=== PATIENT | male | born 1955 | race American Indian/Alaskan Native ===

== ENCOUNTER 2018-10-20 15:39 | Emergency (ER) | payer MEDICARE ==
[2018-10-20] MEDS ORDERED: TYLENOL PO ONE (16:31)
[2018-10-20 17:03] LABS: Albumin 3.1 g/dL (3.9-5); Calcium 7.9 mg/dL (8.4-10.2)
[2018-10-20 17:12] LABS: Hematocrit 48.9 % (35.5-45.6); Hemoglobin 15.9 gm/dl (11.8-15.2); Mean Corpuscular HGB Conc 33 % (32-34); Mean Corpuscular Volume 91 fl (84-94); Red Blood Count 5.38 M/mm3 (3.65-5.03); Red Cell Distribution Width 17.1 % (13.2-15.2)
[2018-10-20 17:48] LABS: Platelet Count 69 K/mm3 (140-440)
[2018-10-20] MEDS ORDERED: NACL 0.9% 1000 ML 1,000 ML IV ONE (17:48)
--- NOTE | 2018-10-20 17:52 | Emergency Department Report ---
ED Male HPI - General Chief complaint: Urogenital-Male Stated complaint: DIALYSIS PATIENT/PENNIS BLOOD Time Seen by Provider: 10/20/18 17:47 Source: patient Mode of arrival: Ambulatory Limitations: Physical Limitation - History of Present Illness Initial comments: Patient is 63-year-old male that presents emergency room with complaints of suprapubic abdominal pain and blood coming from the penis. Patient states it's a constant dripping of blood from his penis. Patient states she is having a burning sensation in the suprapubic region and then has a few drops of blood. Patient states that the leading is not continuous but is intermittent patient states the pain is a 6 out of 10 and is worsening. Patient also complains of fever. Patient denies chills and body aches. Patient states that the pain is better with rest and worse with palpation and movement. Patient states it is not crit urine for the last 5 years area patient states that on dialysis for many years. MD Complaint: other (patient complains of blood from the penis.) Location: abdomen Radiation: none Severity: moderate Severity scale (0 -10): 5 Quality: burning Consistency: intermittent Improves with: rest Worsens with: palpation, movement fever. denies: discharge, swelling, mass, rash, urinary retention, blood in urine, dysuria, nausea/vomiting, incontinence - Related Data Sexually active: No Home Medications Medication Instructions Recorded Confirmed Last Taken Aspirin [Aspirin BABY CHEW TAB] 81 mg PO QDAY 07/05/13 10/20/18 11/25/15 Insulin Glargine,Hum.rec.anlog 8 units SUB-Q QHS PRN 11/19/13 10/20/18 11/25/15 [Lantus Solostar] Carvedilol [Coreg] 12.5 mg PO BID 04/11/14 10/20/18 11/25/15 Amlodipine Besylate [Norvasc] 5 mg PO DAILY 09/10/15 10/20/18 11/25/15 Ondansetron [Zofran TAB] 4 mg PO Q8HR PRN 09/10/15 10/20/18 11/25/15 Prochlorperazine [Compazine] 5 mg PO Q8H PRN 09/10/15 10/20/18 11/25/15 Insulin Aspart [NovoLOG Flexpen] 0 units SUB-Q TIDWM 12/21/15 10/20/18 Unknown Esomeprazole Magnesium [NexIUM 20 mg PO PRN PRN 03/01/16 10/20/18 Unknown 24Hr] Previous Rx's Medication Instructions Recorded Last Taken Type Calcium Acetate [Phoslo] 667 mg PO TIDWM capsule 01/28/16 Unknown Rx Folic Acid/Vit B Comp W-C [Renal 1 cap PO QDAY capsule 01/28/16 Unknown Rx Caps] Gabapentin [Neurontin] 300 mg PO BID capsule 01/28/16 Unknown Rx Sevelamer Carbonate [Renvela] 1,600 mg PO TIDWM tablet 01/28/16 Unknown Rx Sulfamethoxazole/Trimethoprim 1 each PO BID 7 Days #14 tablet 10/20/18 Unknown Rx [Bactrim DS TAB] Allergies Allergy/AdvReac Type Severity Reaction Status Date / Time No Known Allergies Allergy Verified 10/20/18 15:53 ED Review of Systems ROS: Stated complaint: DIALYSIS PATIENT/PENNIS BLOOD Other details as noted in HPI Constitutional: fever. denies: chills Eyes: denies: eye pain, eye discharge, vision change ENT: denies: ear pain, throat pain Respiratory: denies: cough, shortness of breath, wheezing Cardiovascular: denies: chest pain, palpitations Endocrine: no symptoms reported Gastrointestinal: abdominal pain. denies: nausea, diarrhea Genitourinary: denies: urgency, dysuria Musculoskeletal: denies: back pain, joint swelling, arthralgia Skin: denies: rash, lesions Neurological: denies: headache, weakness, paresthesias Psychiatric: denies: anxiety, depression Hematological/Lymphatic: denies: easy bleeding, easy bruising ED Past Medical Hx - Past Medical History Previous Medical History?: Yes Hx Hypertension: Yes Hx Congestive Heart Failure: Yes Hx Diabetes: Yes Hx Deep Vein Thrombosis: No Hx Renal Disease: Yes (, , Sat) Hx Sickle Cell Disease: No Hx Seizures: No Hx Asthma: No Hx COPD: No Hx HIV: No - Surgical History Past Surgical History?: Yes Additional Surgical History: Shunt right arm x2. Eye surgery. Right subclavian vein Vas-Cath - Family History Family history: no significant - Social History Smoking Status: Never Smoker Substance Use Type: None - Medications Home Medications: Home Medications Medication Instructions Recorded Confirmed Last Taken Type Aspirin [Aspirin BABY CHEW TAB] 81 mg PO QDAY 07/05/13 10/20/18 11/25/15 History Insulin Glargine,Hum.rec.anlog 8 units SUB-Q QHS PRN 11/19/13 10/20/18 11/25/15 History [Lantus Solostar] Carvedilol [Coreg] 12.5 mg PO BID 04/11/14 10/20/18 11/25/15 History Amlodipine Besylate [Norvasc] 5 mg PO DAILY 09/10/15 10/20/18 11/25/15 History Ondansetron [Zofran TAB] 4 mg PO Q8HR PRN 09/10/15 10/20/18 11/25/15 History Prochlorperazine [Compazine] 5 mg PO Q8H PRN 09/10/15 10/20/18 11/25/15 History Insulin Aspart [NovoLOG Flexpen] 0 units SUB-Q TIDWM 12/21/15 10/20/18 Unknown History Calcium Acetate [Phoslo] 667 mg PO TIDWM capsule 01/28/16 10/20/18 Unknown Rx Folic Acid/Vit B Comp W-C [Renal 1 cap PO QDAY capsule 01/28/16 10/20/18 Unknown Rx Caps] Gabapentin [Neurontin] 300 mg PO BID capsule 01/28/16 10/20/18 Unknown Rx Sevelamer Carbonate [Renvela] 1,600 mg PO TIDWM tablet 01/28/16 10/20/18 Unknown Rx Esomeprazole Magnesium [NexIUM 20 mg PO PRN PRN 03/01/16 10/20/18 Unknown History 24Hr] Sulfamethoxazole/Trimethoprim 1 each PO BID 7 Days #14 tablet 10/20/18 Unknown Rx [Bactrim DS TAB] ED Physical Exam - General Limitations: Physical Limitation General appearance: alert, in no apparent distress - Head Head exam: Present: atraumatic, normocephalic - Eye Eye exam: Present: normal appearance - ENT ENT exam: Present: mucous membranes moist - Neck Neck exam: Present: normal inspection - Respiratory Respiratory exam: Present: normal lung sounds bilaterally. Absent: respiratory distress - Cardiovascular Cardiovascular Exam: Present: regular rate, normal rhythm. Absent: systolic murmur, diastolic murmur, rubs, gallop - GI/Abdominal GI/Abdominal exam: Present: soft, tenderness (supra pubic tenderness), normal bowel sounds - Rectal Rectal exam: Present: deferred - Extremities Exam Extremities exam: Present: normal inspection - Back Exam Back exam: Present: normal inspection - Neurological Exam Neurological exam: Present: alert, oriented X3 - Psychiatric Psychiatric exam: Present: normal affect, normal mood - Skin Skin exam: Present: warm, dry, intact, normal color. Absent: rash ED Course Vital Signs 10/20/18 10/20/18 10/20/18 15:53 16:34 17:27 Temperature 102.9 F H 102.1 F H Pulse Rate 97 H 74 Respiratory 18 18 16 Rate Blood Pressure 162/65 Blood Pressure 142/69 [Right] O2 Sat by Pulse 100 96 Oximetry 10/20/18 10/20/18 19:12 19:24 Temperature 100 F H 100.0 F H Pulse Rate 74 76 Respiratory 16 14 Rate Blood Pressure Blood Pressure 126/78 131/65 [Right] O2 Sat by Pulse 96 98 Oximetry - Reevaluation(s) Reevaluation #1: Patient's initial evaluation done. Patient's symptoms are clinically consistent with the UTI. Difficult to check a UA due to the fact the patient does not make urine. 10/20/18 17:47 Discussed all results the patient. Patient's CT abdomen negative. Patient's findings and symptoms consistent with UTI. Patient will be treated with antibiotics. She is stable for discharge. Patient given discharge instructions. Patient given return to ER structures. Patient voiced understanding of all shorts. Patient also advised to follow-up with the urologist and his primary care. 10/20/18 20:47 ED Medical Decision Making - Lab Data Result diagrams: 10/20/18 16:28 10/20/18 16:28 - Radiology Data Radiology results: report reviewed Normal limit CT. - Medical Decision Making He is a 63-year-old male that presents emergent with complaints of dysuria and fever and suprapubic pain. Patient's CT is negative. Patient's clinical findings are consistent with a UTI. Patient was treating accordingly. Verifying with urine is difficult to fact patient's urine. Patient also complained of leading from his penis and dysuria. No blood noted while in the ER. Findings consistent with UTI. Patient will be treating with antibiotics and discharged home. Patient advised to follow-up with urologist and his primary care - Differential Diagnosis dysuria. uti. Critical care attestation.: If time is entered above; I have spent that time in minutes in the direct care of this critically ill patient, excluding procedure time. ED Disposition Clinical Impression: Bloody drainage from penis, Fever UTI (urinary tract infection) Qualifiers: Urinary tract infection type: acute cystitis Hematuria presence: with hematuria Qualified Code(s): N30.01 - Acute cystitis with hematuria Abdominal pain Qualifiers: Abdominal location: lower abdomen, unspecified Qualified Code(s): R10.30 - Lower abdominal pain, unspecified Disposition: TO HOME OR SELFCARE Is pt being admited?: No Does the pt Need Aspirin: No Condition: Stable Instructions: Urinary Tract Infection in Men (ED), Dysuria (ED) Additional Instructions: H and to follow up with primary care in 2-3 days. Patient to see urologist in 2-3 days. Patient to return to your condition worsens. Patient to take Tylenol when necessary for fever and pain. Patient to rest. The patient to take medicines as directed. 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
--- NOTE | 2018-10-20 19:18 | Cat Scan Report ---
FINAL REPORT EXAM: CT ABDOMEN PELVIS WO CON HISTORY: FEVER, RLQ ABD PAIN, RT FLANK PAIN, HEMATURIA. NO HX OF STONES. TECHNIQUE: CT abdomen and pelvis without contrast PRIORS: None. FINDINGS: No acute abnormality identified in the lung bases. No focal abnormality identified within the liver parenchyma. The spleen demonstrates normal size and attenuation. No pancreatic abnormalities seen. Kidneys demonstrate no evidence of hydronephrosis or nephrolithiasis. No ureteral calculus identified . The adrenal glands are unremarkable. Abdominal aorta is normal in caliber. No pathologically enlarged lymph nodes are identified. No signs of free fluid or free air No evidence of small bowel dilatation. No pericolonic inflammatory changes are observed Urinary bladder is unremarkable. IMPRESSION: Negative. No acute abnormalities seen
[2018-10-20 19:25] VITALS: BP 131/65
[2018-10-20] MEDS ORDERED: ROCEPHIN/NS 1 GM/50 ML 1 GM/50 ML BAG IV ONE (20:48)
== END 2018-10-20 22:16 | disposition home or self-care (01) ==
LOC: ED 15:39
DX: N30.01 Acute cystitis with hematuria (principal)
CPT/HCPCS: 36415; 74176; 80053; 84100; 85027; 96365; 99284; J0696; J7030